=== PATIENT | male | born 1950 | race Hispanic/Latino ===

== ENCOUNTER 2017-06-24 10:39 | Outpatient (CLI) | payer BC ==
--- NOTE | 2017-06-24 12:18 | ULT ---
ULTRASOUND GALLBLADDER RIGHT UPPER QUADRANT: Date: 06/24/17 HISTORY: Right upper quadrant pain. FINDINGS: Pancreas is not well seen. The hepatic echotexture is echogenic and coarsened. The liver measures 17. 1 cm in length. Gallbladder wall thickness is normal. Sonographic Lo's sign is negative. Common bile duct measure s 4.0 mm. Right kidney measures 12.7 x 5.9 x 6.0 cm. IMPRESSION: 1. Diffuse abnormal increased hepatic echotexture which is coarsened suggesting steatosis versus oth er hepatocellular disease. 2. No evidence of cholecystitis. No cholelithiasis. POS: [facility]
== END 2017-06-24 10:40 | disposition home or self-care (01) ==
LOC: SCSULT 10:39
PROVIDERS: ATTEND Family Medicine
DX: R10.11 Right upper quadrant pain (principal); R93.2 Abnormal findings on diagnostic imaging of liver and biliary tract
CPT/HCPCS: 76705

== ENCOUNTER 2018-02-03 17:00 | Outpatient (CLI) | payer BC | END 2018-02-03 17:01 | disposition home or self-care (01) | LOC: SLEEPLAB 17:00 | PROVIDERS: ATTEND Family Medicine | DX: G47.33 Obstructive sleep apnea (adult) (pediatric) (principal); R53.83 Other fatigue; R06.83 Snoring; E11.9 Type 2 diabetes mellitus without complications; I10 Essential (primary) hypertension; Z68.31 Body mass index [BMI] 31.0-31.9, adult | CPT/HCPCS: 95806 ==